=== PATIENT | male | born 1960 ===

== ENCOUNTER 2016-11-21 16:08 | Emergency (ER) | payer BC, OTHER ==
[2016-11-21 17:20] VITALS: BP 126/80
[2016-11-21] MEDS ORDERED: Fluorescein Sodium TOPICAL* 1 MG TEST OPHTHALMIC ONE (17:45)
[2016-11-21] MEDS ORDERED: Tetracaine 0.5% OPTH.SOL 4 ML* 1 DROP BTL LEFT EYE ONE (17:59)
--- NOTE | 2016-11-21 17:59 | UC ---
Eye Complaint HPI - HPI Summary HPI Summary: 56 y/o male w PMH sig for b/l cataract sugery 3-4 years ago, up to date on tetanus. paTIENT states while mowing lawn a stick hit him in the L eye, feels at though FB stuck in eye. + photophobia, tearing, no bleeding. + blurred vision. no headache. - History of Current Complaint Chief Complaint: UCEye Stated Complaint: EYE COMPLAINT Time Seen by Provider: 11/21/16 17:46 Hx Obtained From: Patient, Family/Squirrel Man - Onset/Duration: Sudden Onset Timing: Constant Severity Initially: Moderate Severity Currently: Moderate - Allergies/Home Medications Allergies/Adverse Reactions: Allergies Allergy/AdvReac Type Severity Reaction Status Date / Time No Known Allergies Allergy Verified 11/21/16 17:13 PMH/Surg Hx/FS Hx/Imm Hx Previously Healthy: No - b/l cataract surgery - Surgical History Surgical History: Yes Surgery Procedure, Year, and Place: bilateral cataracts - Social History Alcohol Use: Occasionally Substance Use Type: None Smoking Status (MU): Never Smoked Tobacco - Immunization History Most Recent Tetanus Shot: 7-8 yrs ago Review of Systems Eyes: Blurred Vision, Drainage, Eye Redness, Photophobia All Other Systems Reviewed And Are Negative: Yes Physical Exam Triage Information Reviewed: Yes Appearance: Well-Appearing, No Pain Distress, Well-Nourished Vital Signs: Initial Vital Signs Temp 99.6 F 11/21/16 17:14 Pulse 68 11/21/16 17:14 Resp 16 11/21/16 17:14 BP 126/80 11/21/16 17:14 Pulse Ox 100 11/21/16 17:14 Eyes: Positive: Conjunctiva Inflamed - left eye flueor staining= 2 corneal abrasions, on lateral inner canthus small, raised violacous area noted, examianed by DR. Mosqueda with cotton swab, non-mobile, no FB appreciated Neck: Positive: Supple Eye Complaint Course/Dx - Course Course Of Treatment: corneal abrasion with possible FB, follow up with opthamology tomorrow, patient seen by Dr. Cooper. abx ointment given - Differential Dx/Diagnosis Differential Diagnosis/HQI/PQRI: Corneal Abrasion Provider Diagnoses: corenal abrasion left eye Discharge - Discharge Plan Condition: Fair Disposition: HOME Prescriptions: Erythromycin OPTH OINT* [Erythromycin 0.5% OPTH OINT*] 1 applic LEFT EYE Q4H #1 tube Patient Education Materials: Corneal Abrasion (ED) Referrals: Lisa Kemp MD [Medical Doctor] - (Follow up within 24 hours for possible removal of body, follow up of corneal abrasions ) Pasquale Rahman [Primary Care Provider] - Additional Instructions: - DO not wear contacts or put anything into eye - ANtibiotic as directed - Follow up with eye doctor within 24 hours for re-evaluation - Motrin/ tylenol as needed for pain
[2016-11-21] MEDS ORDERED: Tetracaine 0.5% OPTH.SOL 4 ML* 1 DROP BTL ONE (18:01)
== END 2016-11-21 18:13 | disposition home or self-care (01) ==
LOC: UCCORT 16:08
DX: S05.02XA Injury of conjunctiva and corneal abrasion without foreign body, left eye, initial encounter (principal); W22.8XXA Striking against or struck by other objects, initial encounter; Y93.H9 Activity, other involving exterior property and land maintenance, building and construction; Y92.9 Unspecified place or not applicable; Z98.42 Cataract extraction status, left eye; Z98.41 Cataract extraction status, right eye
CPT/HCPCS: 99202; A9270-GY; G0463